=== PATIENT | female | born 1960 | race Hispanic/Latino ===

== ENCOUNTER 2018-10-01 11:42 | Inpatient (IN) | payer MEDICARE ==
[2018-10-01] MEDS ORDERED: NACL 0.9% 1000 ML 1,000 ML ONE (12:16)
[2018-10-01] MEDS ORDERED: DUONEB *Not for PRN Use IH ONE ×2 (12:18→12:32)
--- NOTE | 2018-10-01 12:23 | Emergency Department Report ---
ED Syncope HPI - General Stated Complaint: SYNCOPE/FAAL RT ARM PAIN Time Seen by Provider: 10/01/18 12:01 Source: patient, EMS Exam Limitations: no limitations - History of Present Illness Initial Comments: Patient is a 58-year-old female that presents emergency room with complaints of syncopal episode times one. Patient states she hit her arm. Patient states she was walking and just became dizzy and patient sat down and passed out. Patient denies hitting head. Patient denies prolonged loss of consciousness. Patient states that she was out for seconds. Patient states she was just [facility] after a weeklong stay in this hospital. Patient states she left a rehabilitation center AGAINST MEDICAL ADVICE discharge like they weren't doing anything for her. Patient denies chest pain shortness of breath. Patient denies headache. Patient denies any symptoms at this time. However patient had dizziness and lightheaded prior to passing out. Timing/Prior Episodes: no prior history, single episode today Precipitating Factors: Positive: lightheadedness Context: standing Loss of Consciousness: brief (seconds) Current Symptoms: back to normal - Related Data Allergies/Adverse Reactions: Allergies Sulfa (Sulfonamide Antibiotics) Allergy (Verified 09/12/18 22:00) Unknown Home Medications: Ambulatory Orders Duloxetine HCl [DULoxetine] 1 tab PO BID 09/13/18 Quetiapine Fumarate [QUEtiapine Fumarate] 1 tab PO HS 09/13/18 Tiotropium [Spiriva] 18 mcg IH QDAY 09/13/18 clonazePAM [Clonazepam] 1.5 tab PO HS 09/13/18 predniSONE [Prednisone] 2 puff PO DAILY 09/13/18 Acetaminophen [Acetaminophen TAB] 650 mg PO Q4H PRN tablet 09/19/18 Arformoterol Nebu [Brovana Nebu] 15 mcg IH Q12HRT ml 09/19/18 Budesonide [Pulmicort Respules] 0.5 mg IH Q12HRT nebu 09/19/18 Enoxaparin [Lovenox] 40 mg SUB-Q QDAY@1000 syringe 09/19/18 Ipratropium/Albuterol Sulfate [DUONEB *Not for PRN Use*] 1 ampul IH Q6HRT ampul.neb 09/19/18 methylPREDNISolone Sod Suc [Solu-MEDROL] 20 mg IV Q8HR vial 09/19/18 ED Review of Systems ROS: Stated complaint: SYNCOPE/FAAL RT ARM PAIN Other details as noted in HPI Constitutional: denies: chills, fever Eyes: denies: eye pain, eye discharge, vision change ENT: denies: ear pain, throat pain Respiratory: denies: cough, shortness of breath, wheezing Cardiovascular: denies: chest pain, palpitations Endocrine: no symptoms reported Gastrointestinal: denies: abdominal pain, nausea, diarrhea Genitourinary: denies: urgency, dysuria, discharge Musculoskeletal: denies: back pain, joint swelling, arthralgia Skin: denies: rash, lesions Neurological: denies: headache, weakness, paresthesias Psychiatric: denies: anxiety, depression Hematological/Lymphatic: denies: easy bleeding, easy bruising ED Past Medical Hx - Past Medical History Previous Medical History?: Yes Hx Congestive Heart Failure: No Hx Diabetes: No Hx Psychiatric Treatment: Yes Hx COPD: Yes - Surgical History Past Surgical History?: No - Family History Family history: no significant - Social History Smoking Status: Former Smoker Substance Use Type: None - Medications Home Medications: Home Medications Medication Instructions Recorded Confirmed Last Taken Type Duloxetine HCl [DULoxetine] 1 tab PO BID 09/13/18 09/13/18 Unknown History Quetiapine Fumarate [QUEtiapine 1 tab PO HS 09/13/18 09/13/18 Unknown History Fumarate] Tiotropium [Spiriva] 18 mcg IH QDAY 09/13/18 09/13/18 Unknown History clonazePAM [Clonazepam] 1.5 tab PO HS 09/13/18 09/13/18 Unknown History predniSONE [Prednisone] 2 puff PO DAILY 09/13/18 09/13/18 Unknown History Acetaminophen [Acetaminophen TAB] 650 mg PO Q4H PRN tablet 09/19/18 Unknown Rx Arformoterol Nebu [Brovana Nebu] 15 mcg IH Q12HRT ml 09/19/18 Unknown Rx Budesonide [Pulmicort Respules] 0.5 mg IH Q12HRT nebu 09/19/18 Unknown Rx Enoxaparin [Lovenox] 40 mg SUB-Q QDAY@1000 syringe 09/19/18 Unknown Rx Ipratropium/Albuterol Sulfate 1 ampul IH Q6HRT ampul.neb 09/19/18 Unknown Rx [DUONEB *Not for PRN Use*] methylPREDNISolone Sod Suc 20 mg IV Q8HR vial 09/19/18 Unknown Rx [Solu-MEDROL] ED Physical Exam - General Limitations: No Limitations General appearance: alert, in no apparent distress - Head Head exam: Present: atraumatic, normocephalic - Eye Eye exam: Present: normal appearance, PERRL Pupils: Present: normal accommodation - ENT ENT exam: Present: mucous membranes moist - Neck Neck exam: Present: normal inspection - Respiratory Respiratory exam: Present: normal lung sounds bilaterally. Absent: respiratory distress - Cardiovascular Cardiovascular Exam: Present: regular rate, normal rhythm. Absent: systolic murmur, diastolic murmur, rubs, gallop - GI/Abdominal GI/Abdominal exam: Present: soft, normal bowel sounds - Extremities Exam Extremities exam: Present: normal inspection - Back Exam Back exam: Present: normal inspection - Neurological Exam Neurological exam: Present: alert, oriented X3 - Psychiatric Psychiatric exam: Present: normal affect, normal mood - Skin Skin exam: Present: warm, dry, intact, normal color. Absent: rash ED Course Vital Signs 10/01/18 10/01/18 10/01/18 12:12 12:37 12:42 Temperature 98.4 F Pulse Rate 103 H 106 H Pulse Rate [ 106 H Bilateral] Respiratory 12 20 Rate Respiratory 24 Rate [Bilateral ] Blood Pressure 150/126 Blood Pressure [Left] O2 Sat by Pulse 80 L 95 Oximetry 10/01/18 10/01/18 10/01/18 14:00 14:45 15:45 Temperature Pulse Rate 102 H 103 H 105 H Pulse Rate [ Bilateral] Respiratory 14 15 18 Rate Respiratory Rate [Bilateral ] Blood Pressure Blood Pressure 86/49 100/54 120/63 [Left] O2 Sat by Pulse 96 95 99 Oximetry 10/01/18 16:00 Temperature Pulse Rate 106 H Pulse Rate [ Bilateral] Respiratory 14 Rate Respiratory Rate [Bilateral ] Blood Pressure Blood Pressure 95/55 [Left] O2 Sat by Pulse 99 Oximetry - Reevaluation(s) Reevaluation #1: Initial Evaluation done. Patient brought in by EMS. Patient states she had a syncopal episode. Patient found to be hypoxic. BiPAP has been ordered. Patient placed on BiPAP given a DuoNeb. She denies chest pain or shortness of breath. She denies history of CHF. Patient states she has COPD and is on 2.5 L of home O2. He found to be hypotensive, fluids will be started. 10/01/18 12:01 Patient blood pressure has improved. Patient's oxygenation has improved. 10/01/18 12:30 Her blood pressure is 103/60. Patient's oxygenation is 95%. Patient is doing well on BiPAP. 10/01/18 13:[address] Patient's blood pressure 120/60. Patient's oxygenation better and patient is currently on a Ventimask. 10/01/18 16:12 Discussed plan of care and results with patient. Patient voiced understanding of results. Patient agrees to plan of care and admission. 10/01/18 16:20 - Consultations Consultation #1: Hospital was consulted for admission. Hospitalist to admit patient. Hospitalist to assume care. 10/01/18 16:19 ED Medical Decision Making - Lab Data Result diagrams: 10/01/18 12:28 10/01/18 12:28 - EKG Data -: EKG Interpreted by Oh EKG shows normal: sinus rhythm, axis, intervals, QRS complexes, ST-T waves Rate: normal - Radiology Data Radiology results: report reviewed AP CHEST: HISTORY: Syncope, pain after fall Mild volume overload has resolved since 09/19/18. The lungs are hyperinflated consistent with underlying emphysema. Discoid atelectasis or scarring is noted at the left lung base. Otherwise, the lungs are adequately aerated. No pleural effusion or pneumothorax is identified. Heart size is within normal limits. The bony structures are demineralized. A mildly displaced left lateral rib fracture is identified at the seventh level. There is also suggestion of a right lateral eighth rib fracture. IMPRESSION: Emphysema. Discoid atelectasis or scarring at the left lung base. Bilateral rib fractures as described. FINAL REPORT EXAM: CT HEAD/BRAIN WO CON HISTORY: Syncope TECHNIQUE: CT examination of the head without IV contrast PRIORS: None. FINDINGS: No acute air-fluid level visualized in the included air-filled sinuses. Bone windows demonstrate no acute fracture. There is ventricular and sulcal prominence compatible with global cerebrocortical atrophy. The brain contains no mass, mass effect, hemorrhage, or acute infarct. There is no extra-axial intracranial bleed, brain bleed, or midline shift. IMPRESSION: No acute CVA, intracranial bleed, or brain mass - Medical Decision Making pt is a 58-year-old female that presented to the emergency room with complaints of syncope. Patient also found to have acute respiratory hypoxia as well as hypotension. Patient was admitted to the hospitalist service for further evaluation and treatment. Patient had a CTA done for elevated d-dimer and hypoxia. Patient's blood pressure responded well to fluids. She was initially placed on BiPAP for hypoxia patient has improved after respiratory treatments and is now on a Ventimask. Critical Care Time: Yes Critical care attestation.: If time is entered above; I have spent that time in minutes in the direct care of this critically ill patient, excluding procedure time. Critical Care Time: 55 minutes ED Disposition Clinical Impression: Hypoxia, COPD exacerbation Respiratory failure Qualifiers: Chronicity: acute Respiratory failure complication: hypoxia Qualified Code(s): J96.01 - Acute respiratory failure with hypoxia Hypotension Qualifiers: Hypotension type: unspecified hypotension type Qualified Code(s): I95.9 - Hypotension, unspecified Syncope Qualifiers: Syncope type: unspecified Qualified Code(s): R55 - Syncope and collapse Disposition: -09 OP ADMIT IP TO THIS HOSP Is pt being admited?: Yes Does the pt Need Aspirin: No Condition: Critical Time of Disposition: 16:08
[2018-10-01] MEDS ORDERED: MAXIPIME/NS 2 GM/100 ML 2 GM/100 ML BAG IV ONE (12:39)
[2018-10-01] MEDS ORDERED: NACL 0.9% 1000 ML 1,000 ML IV ONE ×2 (12:39)
[2018-10-01 12:58] LABS: Hematocrit 36.4 % (30.3-42.9); Hemoglobin 11.8 gm/dl (10.1-14.3); Mean Corpuscular HGB Conc 32 % (30-34); Mean Corpuscular Volume 92 fl (79-97); Red Blood Count 3.97 M/mm3 (3.65-5.03); Red Cell Distribution Width 24.5 % (13.2-15.2)
[2018-10-01 13:10] LABS: Creatine Kinase MB 4.1 ng/mL (0.0-4.0)
[2018-10-01 13:11] LABS: Alanine Aminotransferase 37 units/L (7-56); Albumin 3.5 g/dL (3.9-5); BUN/Creatinine Ratio 29; Blood Urea Nitrogen 20 mg/dL (7-17); Calcium 8.6 mg/dL (8.4-10.2); Hemolysis Index 16
--- NOTE | 2018-10-01 13:35 | XRay Report ---
AP CHEST: HISTORY: Syncope, pain after fall Mild volume overload has resolved since 09/19/18. The lungs are hyperinflated consistent with underlying emphysema. Discoid atelectasis or scarring is noted at the left lung base. Otherwise, the lungs are adequately aerated. No pleural effusion or pneumothorax is identified. Heart size is within normal limits. The bony structures are demineralized. A mildly displaced left lateral rib fracture is identified at the seventh level. There is also suggestion of a right lateral eighth rib fracture. IMPRESSION: Emphysema. Discoid atelectasis or scarring at the left lung base. Bilateral rib fractures as described.
[2018-10-01 14:14] LABS: Myelocytes # (Manual) 0.2 K/mm3; Total Cells Counted 100
[2018-10-01 14:15] LABS: Anisocytosis 2+; Macrocytosis 2+
[2018-10-01 14:16] LABS: Ovalocytes 1+; Platelet Estimate Consistent w Auto; Poikilocytosis 1+
[2018-10-01 14:17] LABS: Platelet Count 98 K/mm3 (140-440)
--- NOTE | 2018-10-01 15:57 | Cat Scan Report ---
FINAL REPORT EXAM: CT HEAD/BRAIN WO CON HISTORY: Syncope TECHNIQUE: CT examination of the head without IV contrast PRIORS: None. FINDINGS: No acute air-fluid level visualized in the included air-filled sinuses. Bone windows demonstrate no acute fracture. There is ventricular and sulcal prominence compatible with global cerebrocortical atrophy. The brain contains no mass, mass effect, hemorrhage, or acute infarct. There is no extra-axial intracranial bleed, brain bleed, or midline shift. IMPRESSION: No acute CVA, intracranial bleed, or brain mass
[2018-10-01] MEDS ORDERED: SOLU-Medrol IV ONE (16:19)
--- NOTE | 2018-10-01 16:39 | Cat Scan Report ---
FINAL REPORT EXAM: CT ANGIO CHEST HISTORY: hypoxia. el d-dimer TECHNIQUE: CT examination of the chest with IV contrast CT angiographic 2D and thick slab 3D image post-processing PRIORS: 09/13/2018 FINDINGS: Normal cardiac size without pericardial effusion. Patient arm in the diagnostic [id number] s image quality and limits the examination. Intact normal caliber thoracic aorta. Nonspecific mural thickening in the mid and distal esophagus. No hilar mass or mediastinal adenopathy. The visualized pulmonary arteries are diffusely patent bilat erally. There is no filling defect to suggest PE. Prominent stool and caliber in visible portion of colon may reflect constipation Multifocal pulmonary emphysema with scattered reticular scarring. Slight consolidation in the posterior lung base bilaterally may reflect atelectasis, left more than r ight. Differential includes small foci of pneumonia, left more than right. Degenerative change in the regional skeleton. Healed right rib fractures. Posterior fractures of the left 8th, 9th, 10th, and 11th ribs appear acute to subacute with adjacent slight callus formation. These are slightly to moderately displaced. Underlying pulmonary parenchyma l density may reflect pulmonary contusion. IMPRESSION: Eighth, 9th, 10th, and 11th posterior rib fractures appear acute to subacute, some with slight adjace nt callus formation. Subjacent pulmonary parenchymal density may reflect pulmonary contusion in the l eft lower lobe Slight consolidation of the posterior lung base bilaterally may reflect atelectasis and/or pneumonia, more on the left Nonspecific mural thickening in the mid and distal esophagus may be from reflux disease. Differential includes edema, inflammation, esophagitis, or neoplastic infiltration Prominent stool and caliber in the visible portion of colon may reflect constipation Pulmonary emphysema with scattered multifocal reticular scar No CT evidence of large vessel or central pulmonary emboli.
[2018-10-01] MEDS: NACL 0.9% 1000 ML 1,000 ML IV SCH (16:44)
[2018-10-01] MEDS ORDERED: TYLENOL PO PRN (22:34)
[2018-10-02] MEDS: DUONEB *Not for PRN Use IH SCH ×6 (01:45→21:06)
--- NOTE | 2018-10-02 07:01 | Event Note ---
Date: 10/01/18 See H/p in reports Syncope r/o GA
[2018-10-02] MEDS: NACL 0.9% 1000 ML 1,000 ML IV SCH ×2 (07:19→23:54)
--- NOTE | 2018-10-02 07:50 | History and Physical Report ---
CHIEF COMPLAINT: Apparently passed out x 1. HISTORY OF PRESENT ILLNESS: A 58-year-old female with past medical history of COPD and bipolar disorder, recently admitted to rehabilitation facility from this hospital, was discharged. The patient apparently passed out while going home. The patient was in the rehab center for about 10 days. No chest pain, no shortness of breath. Passed out for a few seconds. No diaphoresis. No precipitating factors. PAST MEDICAL HISTORY: Significant for COPD and bipolar disorder. PAST SURGICAL HISTORY: None. FAMILY HISTORY: Hypertension. SOCIAL HISTORY: Former smoker. REVIEW OF SYSTEMS: Significant for syncope. Otherwise, review of systems negative. Also, right arm pain. PHYSICAL EXAMINATION: GENERAL: Middle-aged female, cooperative during examination. VITAL SIGNS: Blood pressure is 113/69, temperature is 98, pulse is 105, respirations are 18. HEENT: Unremarkable. Pupils are equal and reactive. NECK: Supple, no lymphadenopathy, no thyromegaly. LUNGS: Clear to auscultation and percussion. Good air entry. CARDIOVASCULAR: S1, S2 heard. No gallop, no murmur, no rub. Apical impulse in left fifth intercostal space and midclavicular line. ABDOMEN: Soft and benign. No hepatosplenomegaly. No guarding, no rigidity. Hernial orifices are normal. EXTREMITIES: Good pedal pulses. No pedal edema. LABORATORY DATA: Significant for white count of 17,000, H and H of 11.8 and 36.4, platelet count of 98,000. Sodium is 133, slightly low, BUN and creatinine 20 and 0.7. CK is 44, CK-MB is 4.1, total protein is 6.1, albumin is 3.5. Chest CTA shows 8th, 9th, 10th, and 11th posterior rib fracture, appear acute or subacute with slight pulmonary parenchymal density may reflect pulmonary contusion in the left lower lobe. Slight consolidation of posterior lung base bilaterally may reflect atelectasis and pneumonia, more on the left. Nonspecific mural thickening in the mid and distal esophagus. No CT evidence of central pulmonary emboli. Head CT was negative. Chest x-ray shows emphysema, bilateral rib fractures, discoid atelectasis or scarring of the left lung base. ASSESSMENT AND PLAN: 1. Syncope. Syncope workup. 2. Pneumonia, left lower lobe pneumonia. IV antibiotics for now. Doubt left lower lobe pneumonia. High white count. We will treat as pneumonia for now, may deescalate the antibiotics depending on the patient's clinical response. The patient was treated in a rehab and in the [facility] for the last few weeks. 3. Rib fractures, conservative treatment. They are healing. 4. Chronic obstructive pulmonary disease exacerbation. Continue bronchodilators. 5.Acute resp failure--IV abx Neb tx and solumedrol 6. Deep venous thrombosis prophylaxis, Lovenox 40 mg subcutaneous daily. JOB# [id number] [facility]
[2018-10-02] MEDS ORDERED: PROVENTIL IH PRN (08:07)
[2018-10-02] MEDS: PULMICORT IH SCH ×2 (09:20→21:06)
[2018-10-02] MEDS: BROVANA NEBU IH SCH ×2 (09:20→21:05)
[2018-10-02] MEDS ORDERED: DULOXETINE HCL PO SCH (10:00)
[2018-10-02] MEDS ORDERED: SPIRIVA IH SCH (10:00)
--- NOTE | 2018-10-02 11:14 | Progress Note ---
Assessment and Plan Assessment and plan: Sepsis. The patient meets criteria given the tachycardia, leukocytosis and diagnosis of pneumonia. Continue IV antibiotics, follow-up blood cultures and monitor closely. Left lower lobe pneumonia. Continue IV antibiotics. Rib fractures, conservative treatment. Pain control. COPD exacerbation. Continue IV steroids, breathing treatments and antibiotics. Acute hypoxemic respiratory failure. Continue O2 for supportive care. DVT prophylaxis. Continue Lovenox daily. History Interval history: No new issues overnight. Hospitalist Physical - Constitutional Vitals: Temp Pulse Resp BP Pulse Ox 98.2 F 94 H 18 135/75 94 10/02/18 07:57 10/02/18 09:23 10/02/18 09:23 10/02/18 07:58 10/02/18 09:25 General appearance: Present: no acute distress, well-nourished - EENT Eyes: Present: PERRL, EOM intact ENT: hearing intact, clear oral mucosa, dentition normal - Neck Neck: Present: supple, normal ROM - Respiratory Respiratory effort: normal Respiratory: bilateral: CTA - Cardiovascular Rhythm: regular Heart Sounds: Present: S1 & S2. Absent: gallop, rub - Extremities Extremities: no ischemia, No edema, Full ROM - Abdominal General gastrointestinal: soft, non-tender, non-distended, normal bowel sounds - Integumentary Integumentary: Present: clear, warm, dry - Neurologic Neurologic: CNII-XII intact, moves all extremities Results - Labs CBC & Chem 7: 10/01/18 12:28 10/01/18 12:28 Labs: Laboratory Last Values WBC 17.0 K/mm3 (4.5-11.0) H 10/01/18 12:28 RBC 3.97 M/mm3 (3.65-5.03) 10/01/18 12:28 Hgb 11.8 gm/dl (10.1-14.3) 10/01/18 12:28 Hct 36.4 % (30.3-42.9) 10/01/18 12:28 MCV 92 fl (79-97) 10/01/18 12:28 MCH 30 pg (28-32) 10/01/18 12:28 MCHC 32 % (30-34) 10/01/18 12:28 RDW 24.5 % (13.2-15.2) H 10/01/18 12:28 Plt Count 98 K/mm3 (140-440) L 10/01/18 12:28 [place] % (Auto) [employer] 10/01/18 12:28 Eos % (Auto) [employer] 10/01/18 12:28 [place] # [employer] 10/01/18 12:28 Eos # [employer] 10/01/18 12:28 Baso # [employer] 10/01/18 12:28 Add Manual Diff Complete 10/01/18 12:28 Total Counted 100 10/01/18 12:28 Seg Neutrophils % [employer] 10/01/18 12:28 Seg Neuts % (Manual) 88.0 % (40.0-70.0) H 10/01/18 12:28 Band Neutrophils % 0 % 10/01/18 12:28 Lymphocytes % (Manual) 8.0 % (13.4-35.0) L 10/01/18 12:28 Reactive Lymphs % (Man) 0 % 10/01/18 12:28 Monocytes % (Manual) 1.0 % (0.0-7.3) 10/01/18 12:28 Eosinophils % (Manual) 1.0 % (0.0-4.3) 10/01/18 12:28 Basophils % (Manual) 1.0 % (0.0-1.8) 10/01/18 12:28 Metamyelocytes % 0 % 10/01/18 12:28 Myelocytes % 1.0 % 10/01/18 12:28 Promyelocytes % 0 % 10/01/18 12:28 Blast Cells % 0 % 10/01/18 12:28 Nucleated RBC % Not Reportable 10/01/18 12:28 Seg Neutrophils # [employer] 10/01/18 12:28 Seg Neutrophils # Man 15.0 K/mm3 (1.8-7.7) H 10/01/18 12:28 Band Neutrophils # 0.0 K/mm3 10/01/18 12:28 Lymphocytes # (Manual) 1.4 K/mm3 (1.2-5.4) 10/01/18 12:28 Abs React Lymphs (Man) 0.0 K/mm3 10/01/18 12:28 Monocytes # (Manual) 0.2 K/mm3 (0.0-0.8) 10/01/18 12:28 Eosinophils # (Manual) 0.2 K/mm3 (0.0-0.4) 10/01/18 12:28 Basophils # (Manual) 0.2 K/mm3 (0.0-0.1) H 10/01/18 12:28 Metamyelocytes # 0.0 K/mm3 10/01/18 12:28 Myelocytes # 0.2 K/mm3 10/01/18 12:28 Promyelocytes # 0.0 K/mm3 10/01/18 12:28 Blast Cells # 0.0 K/mm3 10/01/18 12:28 WBC Morphology Not Reportable 10/01/18 12:28 Hypersegmented Neuts Not Reportable 10/01/18 12:28 Hyposegmented Neuts Not Reportable 10/01/18 12:28 Hypogranular Neuts Not Reportable 10/01/18 12:28 Smudge Cells Not Reportable 10/01/18 12:28 Toxic Granulation Not Reportable 10/01/18 12:28 Toxic Vacuolation Not Reportable 10/01/18 12:28 Dohle Bodies Not Reportable 10/01/18 12:28 Pelger-Huet Anomaly Not Reportable 10/01/18 12:28 Raphael Rods Not Reportable 10/01/18 12:28 Platelet Estimate Consistent w auto 10/01/18 12:28 Clumped Platelets Not Reportable 10/01/18 12:28 Plt Clumps, EDTA Not Reportable 10/01/18 12:28 Large Platelets Not Reportable 10/01/18 12:28 Giant Platelets Not Reportable 10/01/18 12:28 Platelet Satelliting Not Reportable 10/01/18 12:28 Plt Morphology Comment Not Reportable 10/01/18 12:28 RBC Morphology Not Reportable 10/01/18 12:28 Dimorphic RBCs Not Reportable 10/01/18 12:28 Polychromasia Not Reportable 10/01/18 12:28 Hypochromasia Not Reportable 10/01/18 12:28 Poikilocytosis 1+ 10/01/18 12:28 Anisocytosis 2+ 10/01/18 12:28 Microcytosis Not Reportable 10/01/18 12:28 Macrocytosis 2+ 10/01/18 12:28 Spherocytes Not Reportable 10/01/18 12:28 Pappenheimer Bodies Not Reportable 10/01/18 12:28 Sickle Cells Not Reportable 10/01/18 12:28 Target Cells Not Reportable 10/01/18 12:28 Tear Drop Cells Not Reportable 10/01/18 12:28 Ovalocytes 1+ 10/01/18 12:28 Helmet Cells Not Reportable 10/01/18 12:28 [place] Bodies Not Reportable 10/01/18 12:28 [place] Rings Not Reportable 10/01/18 12:28 [place] Cells Not Reportable 10/01/18 12:28 Bite Cells Not Reportable 10/01/18 12:28 Crenated Cell Not Reportable 10/01/18 12:28 Elliptocytes Not Reportable 10/01/18 12:28 Acanthocytes (Spur) Not Reportable 10/01/18 12:28 Rouleaux Not Reportable 10/01/18 12:28 Hemoglobin C Crystals Not Reportable 10/01/18 12:28 Schistocytes Not Reportable 10/01/18 12:28 Malaria parasites Not Reportable 10/01/18 12:28 Frederic Bodies Not Reportable 10/01/18 12:28 Hem Pathologist Commnt No 10/01/18 12:28 D-Dimer 1530.46 ng/mlDDU (0-234) H 10/01/18 12:28 POC ABG pH 7.388 (7.35-7.45) 10/01/18 12:54 POC ABG pCO2 46.6 (35-45) H 10/01/18 12:54 POC ABG pO2 101 (80-105) 10/01/18 12:54 POC ABG HCO3 28.1 10/01/18 12:54 POC ABG Total CO2 29 10/01/18 12:54 POC ABG O2 Sat 98 10/01/18 12:54 POC ABG Base Excess 3 10/01/18 12:54 FiO2 45 % 10/01/18 12:54 Sodium 133 mmol/L (137-145) L 10/01/18 12:28 Potassium 3.7 mmol/L (3.6-5.0) 10/01/18 12:28 Chloride 92.3 mmol/L (98-107) L 10/01/18 12:28 Carbon Dioxide 25 mmol/L (22-30) 10/01/18 12:28 Anion Gap 19 mmol/L 10/01/18 12:28 BUN 20 mg/dL (7-17) H 10/01/18 12:28 Creatinine 0.7 mg/dL (0.7-1.2) 10/01/18 12:28 Estimated GFR > 60 ml/min 10/01/18 12:28 BUN/Creatinine Ratio 29 % 10/01/18 12:28 Glucose 106 mg/dL (65-100) H 10/01/18 12:28 Lactic Acid 1.00 mmol/L (0.7-2.0) 10/01/18 13:43 Calcium 8.6 mg/dL (8.4-10.2) 10/01/18 12:28 Total Bilirubin 1.20 mg/dL (0.1-1.2) 10/01/18 12:28 AST 16 units/L (5-40) 10/01/18 12:28 ALT 37 units/L (7-56) 10/01/18 12:28 Alkaline Phosphatase 223 units/L (35-129) H 10/01/18 12:28 Total Creatine Kinase 44 units/L (30-135) 10/01/18 12:28 CK-MB (CK-2) 4.1 ng/mL (0.0-4.0) H 10/01/18 12:28 CK-MB (CK-2) Rel Index 9.3 (0-4) H 10/01/18 12:28 Troponin T < 0.010 ng/mL (0.00-0.029) 10/01/18 12:28 Total Protein 6.1 g/dL (6.3-8.2) L 10/01/18 12:28 Albumin 3.5 g/dL (3.9-5) L 10/01/18 12:28 Albumin/Globulin Ratio 1.3 % 10/01/18 12:28
[2018-10-02 11:44] LABS: Creatine Kinase MB 3.8 ng/mL (0.0-4.0)
[2018-10-02] MEDS ORDERED: LEXISCAN IV ONE (12:12)
[2018-10-02] MEDS: CYMBALTA PO SCH ×2 (15:35→21:00)
[2018-10-02] MEDS: SOLU-Medrol IV SCH ×2 (15:35→21:00)
[2018-10-02] MEDS: LEVAQUIN 750MG/150ML 750 MG/150 ML BAG IV SCH (15:35)
--- NOTE | 2018-10-02 17:19 | Vascular Lab Report ---
FINAL REPORT PROCEDURE: Bilateral duplex carotid artery ultrasound. TECHNIQUE: Duplex Doppler ultrasound of the common, internal and external carotid arteries and the v ertebral arteries was performed bilaterally. Pineda scale imaging, velocity spectral waveform analysis, and color flow Doppler were employed. CPT 71364 HISTORY: Syncope. COMPARISON: No prior studies are available for comparison. FINDINGS: Note: Measurement of carotid stenosis is based on flow velocity values that correlate with the [place] Symptomatic Carotid Endarterectomy Trial (NASCET) based stenosis criteria using the internal carotid artery diameter as the denominator for stenosis calculation. CPT 3100F Right side: The right common carotid artery appears widely patent. There is no visible narrowing. The re is some atherosclerotic plaque at the origin of the right internal carotid artery. The peak systol ic velocity measurements are as follows: Proximal right internal carotid artery 134.7 centimeters/sec ond, proximal common carotid artery 102.5 centimeters/second. Right internal carotid/common carotid v elocity ratio 1.31. The ratio is within normal limits. The velocity measurement in the internal carot id artery is mildly elevated. This indicates narrowing of the internal carotid artery estimated at 50 -79 percent. Antegrade flow is confirmed in the right vertebral artery. Left-side: The left common carotid artery appears widely patent. There is some atherosclerotic plaque at the left carotid bifurcation. The peak systolic velocity measurements are as follows: Proximal le ft internal carotid artery 117.9 centimeters/second, proximal common carotid artery 114.2 centimeters /second, left internal carotid/common carotid velocity ratio 1.03. These values are all within normal limits and indicate a less than 50 percent stenosis of the internal carotid artery. Antegrade flow i s confirmed in the left vertebral artery. IMPRESSION: 50-79 percent stenosis of the right internal carotid artery. Less than 50 percent stenosis of the lef t internal carotid artery.
[2018-10-02] MEDS ORDERED: CLONAZEPAM PO SCH (22:00)
[2018-10-02] MEDS ORDERED: QUETIAPINE FUMARATE PO SCH (22:00)
--- NOTE | 2018-10-02 22:35 | Treadmill Report ---
SINGLE ISOTOPE DUAL STUDY MYOCARDIAL PERFUSION SCAN REFERRING PHYSICIAN: Tevin Eric MD Seen and dictated by Anupam Yeung MD DESCRIPTION OF PROCEDURE: The patient received 10 mCi of technetium 99m Myoview intravenously under resting conditions. Resting myocardial perfusion scan was done. Subsequently, the patient underwent Lexiscan stress test as per the protocol. During Lexiscan stress, the patient received 28 mCi of technetium 99m Myoview intravenously. After 30-60 minutes, post stress images were done. Computerized reconstruction imaging was performed for analysis. The post-stress images did not reveal any perfusion abnormality. Gated study did not reveal any wall motion abnormality. Left ventricular ejection fraction was normal and was calculated to be 72%. The resting images were also normal. CONCLUSION: 1. Normal resting and stress myocardial perfusion scan images after the patient underwent Lexiscan stress test. 2. No wall motion abnormality. 3. Normal left ventricular ejection fraction of 72%. JOB# [id number] [facility]
[2018-10-03] MEDS: SOLU-Medrol IV SCH ×3 (05:23→22:32)
[2018-10-03] MEDS: PULMICORT IH SCH ×2 (08:16→20:14)
[2018-10-03] MEDS: BROVANA NEBU IH SCH ×2 (08:16→20:14)
[2018-10-03] MEDS: NACL 0.9% 1000 ML 1,000 ML IV SCH (09:39)
[2018-10-03] MEDS: CYMBALTA PO SCH ×2 (09:52→22:33)
[2018-10-03] MEDS: LEVAQUIN 750MG/150ML 750 MG/150 ML BAG IV SCH (09:52)
--- NOTE | 2018-10-03 10:50 | Progress Note ---
Assessment and Plan Assessment and plan: Sepsis. The patient meets criteria given the tachycardia, leukocytosis and diagnosis of pneumonia. Continue IV antibiotics, follow-up blood cultures and monitor closely. Left lower lobe pneumonia. Continue IV antibiotics. Rib fractures, conservative treatment. Pain control. COPD exacerbation. Continue IV steroids, breathing treatments and antibiotics. Acute hypoxemic respiratory failure. Continue O2 for supportive care. DVT prophylaxis. Continue Lovenox daily. History Interval history: No new issues overnight. Hospitalist Physical - Constitutional Vitals: Temp Pulse Resp BP Pulse Ox 98.7 F 107 H 20 150/85 95 10/03/18 08:27 10/03/18 10:00 10/03/18 10:00 10/03/18 08:27 10/03/18 10:00 General appearance: Present: no acute distress, well-nourished - EENT Eyes: Present: PERRL, EOM intact ENT: hearing intact, clear oral mucosa, dentition normal - Neck Neck: Present: supple, normal ROM - Respiratory Respiratory effort: normal Respiratory: bilateral: CTA - Cardiovascular Rhythm: regular Heart Sounds: Present: S1 & S2. Absent: gallop, rub - Extremities Extremities: no ischemia, No edema, Full ROM - Abdominal General gastrointestinal: soft, non-tender, non-distended, normal bowel sounds - Integumentary Integumentary: Present: clear, warm, dry - Neurologic Neurologic: CNII-XII intact, moves all extremities Results - Labs CBC & Chem 7: 10/01/18 12:28 10/01/18 12:28 Labs: Laboratory Last Values WBC 17.0 K/mm3 (4.5-11.0) H 10/01/18 12:28 RBC 3.97 M/mm3 (3.65-5.03) 10/01/18 12:28 Hgb 11.8 gm/dl (10.1-14.3) 10/01/18 12:28 Hct 36.4 % (30.3-42.9) 10/01/18 12:28 MCV 92 fl (79-97) 10/01/18 12:28 MCH 30 pg (28-32) 10/01/18 12:28 MCHC 32 % (30-34) 10/01/18 12:28 RDW 24.5 % (13.2-15.2) H 10/01/18 12:28 Plt Count 98 K/mm3 (140-440) L 10/01/18 12:28 [place] % (Auto) Keypuncher 10/01/18 12:28 Eos % (Auto) Keypuncher 10/01/18 12:28 [place] # Keypuncher 10/01/18 12:28 Eos # Keypuncher 10/01/18 12:28 Baso # Keypuncher 10/01/18 12:28 Add Manual Diff Complete 10/01/18 12:28 Total Counted 100 10/01/18 12:28 Seg Neutrophils % Keypuncher 10/01/18 12:28 Seg Neuts % (Manual) 88.0 % (40.0-70.0) H 10/01/18 12:28 Band Neutrophils % 0 % 10/01/18 12:28 Lymphocytes % (Manual) 8.0 % (13.4-35.0) L 10/01/18 12:28 Reactive Lymphs % (Man) 0 % 10/01/18 12:28 Monocytes % (Manual) 1.0 % (0.0-7.3) 10/01/18 12:28 Eosinophils % (Manual) 1.0 % (0.0-4.3) 10/01/18 12:28 Basophils % (Manual) 1.0 % (0.0-1.8) 10/01/18 12:28 Metamyelocytes % 0 % 10/01/18 12:28 Myelocytes % 1.0 % 10/01/18 12:28 Promyelocytes % 0 % 10/01/18 12:28 Blast Cells % 0 % 10/01/18 12:28 Nucleated RBC % Not Reportable 10/01/18 12:28 Seg Neutrophils # Keypuncher 10/01/18 12:28 Seg Neutrophils # Man 15.0 K/mm3 (1.8-7.7) H 10/01/18 12:28 Band Neutrophils # 0.0 K/mm3 10/01/18 12:28 Lymphocytes # (Manual) 1.4 K/mm3 (1.2-5.4) 10/01/18 12:28 Abs React Lymphs (Man) 0.0 K/mm3 10/01/18 12:28 Monocytes # (Manual) 0.2 K/mm3 (0.0-0.8) 10/01/18 12:28 Eosinophils # (Manual) 0.2 K/mm3 (0.0-0.4) 10/01/18 12:28 Basophils # (Manual) 0.2 K/mm3 (0.0-0.1) H 10/01/18 12:28 Metamyelocytes # 0.0 K/mm3 10/01/18 12:28 Myelocytes # 0.2 K/mm3 10/01/18 12:28 Promyelocytes # 0.0 K/mm3 10/01/18 12:28 Blast Cells # 0.0 K/mm3 10/01/18 12:28 WBC Morphology Not Reportable 10/01/18 12:28 Hypersegmented Neuts Not Reportable 10/01/18 12:28 Hyposegmented Neuts Not Reportable 10/01/18 12:28 Hypogranular Neuts Not Reportable 10/01/18 12:28 Smudge Cells Not Reportable 10/01/18 12:28 Toxic Granulation Not Reportable 10/01/18 12:28 Toxic Vacuolation Not Reportable 10/01/18 12:28 Dohle Bodies Not Reportable 10/01/18 12:28 Pelger-Huet Anomaly Not Reportable 10/01/18 12:28 Raphael Rods Not Reportable 10/01/18 12:28 Platelet Estimate Consistent w auto 10/01/18 12:28 Clumped Platelets Not Reportable 10/01/18 12:28 Plt Clumps, EDTA Not Reportable 10/01/18 12:28 Large Platelets Not Reportable 10/01/18 12:28 Giant Platelets Not Reportable 10/01/18 12:28 Platelet Satelliting Not Reportable 10/01/18 12:28 Plt Morphology Comment Not Reportable 10/01/18 12:28 RBC Morphology Not Reportable 10/01/18 12:28 Dimorphic RBCs Not Reportable 10/01/18 12:28 Polychromasia Not Reportable 10/01/18 12:28 Hypochromasia Not Reportable 10/01/18 12:28 Poikilocytosis 1+ 10/01/18 12:28 Anisocytosis 2+ 10/01/18 12:28 Microcytosis Not Reportable 10/01/18 12:28 Macrocytosis 2+ 10/01/18 12:28 Spherocytes Not Reportable 10/01/18 12:28 Pappenheimer Bodies Not Reportable 10/01/18 12:28 Sickle Cells Not Reportable 10/01/18 12:28 Target Cells Not Reportable 10/01/18 12:28 Tear Drop Cells Not Reportable 10/01/18 12:28 Ovalocytes 1+ 10/01/18 12:28 Helmet Cells Not Reportable 10/01/18 12:28 Sol-[place] Bodies Not Reportable 10/01/18 12:28 Cornelius Rings Not Reportable 10/01/18 12:28 Jayant Cells Not Reportable 10/01/18 12:28 Bite Cells Not Reportable 10/01/18 12:28 Crenated Cell Not Reportable 10/01/18 12:28 Elliptocytes Not Reportable 10/01/18 12:28 Acanthocytes (Spur) Not Reportable 10/01/18 12:28 Rouleaux Not Reportable 10/01/18 12:28 Hemoglobin C Crystals Not Reportable 10/01/18 12:28 Schistocytes Not Reportable 10/01/18 12:28 Malaria parasites Not Reportable 10/01/18 12:28 Frederic Bodies Not Reportable 10/01/18 12:28 Hem Pathologist Commnt No 10/01/18 12:28 D-Dimer 1530.46 ng/mlDDU (0-234) H 10/01/18 12:28 POC ABG pH 7.388 (7.35-7.45) 10/01/18 12:54 POC ABG pCO2 46.6 (35-45) H 10/01/18 12:54 POC ABG pO2 101 (80-105) 10/01/18 12:54 POC ABG HCO3 28.1 10/01/18 12:54 POC ABG Total CO2 29 10/01/18 12:54 POC ABG O2 Sat 98 10/01/18 12:54 POC ABG Base Excess 3 10/01/18 12:54 FiO2 45 % 10/01/18 12:54 Sodium 133 mmol/L (137-145) L 10/01/18 12:28 Potassium 3.7 mmol/L (3.6-5.0) 10/01/18 12:28 Chloride 92.3 mmol/L (98-107) L 10/01/18 12:28 Carbon Dioxide 25 mmol/L (22-30) 10/01/18 12:28 Anion Gap 19 mmol/L 10/01/18 12:28 BUN 20 mg/dL (7-17) H 10/01/18 12:28 Creatinine 0.7 mg/dL (0.7-1.2) 10/01/18 12:28 Estimated GFR > 60 ml/min 10/01/18 12:28 BUN/Creatinine Ratio 29 % 10/01/18 12:28 Glucose 106 mg/dL (65-100) H 10/01/18 12:28 POC Glucose 276 (70-105) H 10/03/18 10:09 Lactic Acid 1.00 mmol/L (0.7-2.0) 10/01/18 13:43 Calcium 8.6 mg/dL (8.4-10.2) 10/01/18 12:28 Total Bilirubin 1.20 mg/dL (0.1-1.2) 10/01/18 12:28 AST 16 units/L (5-40) 10/01/18 12:28 ALT 37 units/L (7-56) 10/01/18 12:28 Alkaline Phosphatase 223 units/L (35-129) H 10/01/18 12:28 Total Creatine Kinase 29 units/L (30-135) L 10/02/18 11:04 CK-MB (CK-2) 3.8 ng/mL (0.0-4.0) 10/02/18 11:04 CK-MB (CK-2) Rel Index 13.1 (0-4) H 10/02/18 11:04 Troponin T < 0.010 ng/mL (0.00-0.029) 10/02/18 11:04 Total Protein 6.1 g/dL (6.3-8.2) L 10/01/18 12:28 Albumin 3.5 g/dL (3.9-5) L 10/01/18 12:28 Albumin/Globulin Ratio 1.3 % 10/01/18 12:28
[2018-10-03] MEDS ORDERED: HumuLIN R SUB-Q SCH (11:30)
[2018-10-03] MEDS ORDERED: D50W (25GM) Syringe IV PRN (11:39)
[2018-10-03] MEDS: HumuLIN R SUB-Q SCH ×3 (12:24→22:36)
[2018-10-03] MEDS: DUONEB *Not for PRN Use IH SCH ×4 (12:59→21:00)
[2018-10-03] MEDS: NORMODYNE PO SCH (22:35)
[2018-10-04] MEDS: SOLU-Medrol IV SCH ×3 (05:54→22:04)
[2018-10-04 06:04] LABS: Hematocrit 28.3 % (30.3-42.9); Hemoglobin 9.5 gm/dl (10.1-14.3); Mean Corpuscular HGB Conc 34 % (30-34); Mean Corpuscular Volume 91 fl (79-97); Platelet Count 192 K/mm3 (140-440)
[2018-10-04 06:41] LABS: Alanine Aminotransferase 30 units/L (7-56); BUN/Creatinine Ratio 30; Band Neutrophils # (Manual) 0.2 K/mm3; Basophils % (Manual) 0 % (0.0-1.8); Blood Urea Nitrogen 15 mg/dL (7-17); Calcium 8.6 mg/dL (8.4-10.2); Eosinophils % (Manual) 0 % (0.0-4.3); Hemolysis Index 7; Total Cells Counted 100
[2018-10-04 06:42] LABS: Anisocytosis 2+; Dimorphic RBC Yes; Hypochromasia 1+; Ovalocytes 1+; Stomatocytes Few; Target Cells Rare
[2018-10-04] MEDS: HumuLIN R SUB-Q SCH ×4 (08:18→22:06)
[2018-10-04] MEDS: PULMICORT IH SCH ×2 (08:46→21:25)
[2018-10-04] MEDS: DUONEB *Not for PRN Use IH SCH ×4 (08:46→21:25)
[2018-10-04] MEDS: BROVANA NEBU IH SCH ×2 (08:46→21:25)
[2018-10-04] MEDS: LEVAQUIN 750MG/150ML 750 MG/150 ML BAG IV SCH (10:22)
[2018-10-04] MEDS: NORMODYNE PO SCH ×2 (10:23→22:02)
[2018-10-04] MEDS: CYMBALTA PO SCH ×2 (10:24→22:04)
--- NOTE | 2018-10-04 14:09 | Progress Note ---
Assessment and Plan Assessment and plan: Sepsis. Continue IV antibiotics, follow-up blood cultures and monitor closely. Left lower lobe pneumonia. Continue IV antibiotics. Rib fractures, conservative treatment. Pain control. COPD exacerbation. Continue IV steroids, breathing treatments and antibiotics. Acute hypoxemic respiratory failure. Continue O2 for supportive care. DVT prophylaxis. Continue Lovenox daily. History Interval history: No new issues overnight. Hospitalist Physical - Constitutional Vitals: Temp Pulse Resp BP Pulse Ox 98.3 F 68 20 124/61 94 10/04/18 11:54 10/04/18 11:55 10/04/18 11:55 10/04/18 11:55 10/04/18 11:55 General appearance: Present: no acute distress, well-nourished - EENT Eyes: Present: PERRL, EOM intact ENT: hearing intact, clear oral mucosa, dentition normal - Neck Neck: Present: supple, normal ROM - Respiratory Respiratory effort: normal Respiratory: bilateral: CTA - Cardiovascular Rhythm: regular Heart Sounds: Present: S1 & S2. Absent: gallop, rub - Extremities Extremities: no ischemia, No edema, Full ROM - Abdominal General gastrointestinal: soft, non-tender, non-distended, normal bowel sounds - Integumentary Integumentary: Present: clear, warm, dry - Neurologic Neurologic: CNII-XII intact, moves all extremities Results - Labs CBC & Chem 7: 10/04/18 05:42 10/04/18 05:42 Labs: Laboratory Last Values WBC 15.3 K/mm3 (4.5-11.0) H 10/04/18 05:42 RBC 3.10 M/mm3 (3.65-5.03) L 10/04/18 05:42 Hgb 9.5 gm/dl (10.1-14.3) L 10/04/18 05:42 Hct 28.3 % (30.3-42.9) L D 10/04/18 05:42 MCV 91 fl (79-97) 10/04/18 05:42 MCH 31 pg (28-32) 10/04/18 05:42 MCHC 34 % (30-34) 10/04/18 05:42 RDW 26.0 % (13.2-15.2) H 10/04/18 05:42 Plt Count 192 K/mm3 (140-440) 10/04/18 05:42 [place] % (Auto) Drycleaner 10/01/18 12:28 Eos % (Auto) Drycleaner 10/01/18 12:28 [place] # Drycleaner 10/01/18 12:28 Eos # Drycleaner 10/01/18 12:28 Baso # Drycleaner 10/01/18 12:28 Add Manual Diff Complete 10/04/18 05:42 Total Counted 100 10/04/18 05:42 Seg Neutrophils % Drycleaner 10/04/18 05:42 Seg Neuts % (Manual) 92.0 % (40.0-70.0) H 10/04/18 05:42 Band Neutrophils % 1.0 % 10/04/18 05:42 Lymphocytes % (Manual) 3.0 % (13.4-35.0) L 10/04/18 05:42 Reactive Lymphs % (Man) 0 % 10/04/18 05:42 Monocytes % (Manual) 4.0 % (0.0-7.3) 10/04/18 05:42 Eosinophils % (Manual) 0 % (0.0-4.3) 10/04/18 05:42 Basophils % (Manual) 0 % (0.0-1.8) 10/04/18 05:42 Metamyelocytes % 0 % 10/04/18 05:42 Myelocytes % 0 % 10/04/18 05:42 Promyelocytes % 0 % 10/04/18 05:42 Blast Cells % 0 % 10/04/18 05:42 Nucleated RBC % Not Reportable 10/04/18 05:42 Seg Neutrophils # Drycleaner 10/01/18 12:28 Seg Neutrophils # Man 14.1 K/mm3 (1.8-7.7) H 10/04/18 05:42 Band Neutrophils # 0.2 K/mm3 10/04/18 05:42 Lymphocytes # (Manual) 0.5 K/mm3 (1.2-5.4) L 10/04/18 05:42 Abs React Lymphs (Man) 0.0 K/mm3 10/04/18 05:42 Monocytes # (Manual) 0.6 K/mm3 (0.0-0.8) 10/04/18 05:42 Eosinophils # (Manual) 0.0 K/mm3 (0.0-0.4) 10/04/18 05:42 Basophils # (Manual) 0.0 K/mm3 (0.0-0.1) 10/04/18 05:42 Metamyelocytes # 0.0 K/mm3 10/04/18 05:42 Myelocytes # 0.0 K/mm3 10/04/18 05:42 Promyelocytes # 0.0 K/mm3 10/04/18 05:42 Blast Cells # 0.0 K/mm3 10/04/18 05:42 WBC Morphology Not Reportable 10/04/18 05:42 Hypersegmented Neuts Not Reportable 10/04/18 05:42 Hyposegmented Neuts Not Reportable 10/04/18 05:42 Hypogranular Neuts Not Reportable 10/04/18 05:42 Smudge Cells Not Reportable 10/04/18 05:42 Toxic Granulation Not Reportable 10/04/18 05:42 Toxic Vacuolation Not Reportable 10/04/18 05:42 Dohle Bodies Not Reportable 10/04/18 05:42 Pelger-Huet Anomaly Not Reportable 10/04/18 05:42 Raphael Rods Not Reportable 10/04/18 05:42 Platelet Estimate Appears normal 10/04/18 05:42 Clumped Platelets Not Reportable 10/04/18 05:42 Plt Clumps, EDTA Not Reportable 10/04/18 05:42 Large Platelets Not Reportable 10/04/18 05:42 Giant Platelets Not Reportable 10/04/18 05:42 Platelet Satelliting Not Reportable 10/04/18 05:42 Plt Morphology Comment Not Reportable 10/04/18 05:42 RBC Morphology Not Reportable 10/04/18 05:42 Dimorphic RBCs Yes 10/04/18 05:42 Polychromasia Rare 10/04/18 05:42 Hypochromasia 1+ 10/04/18 05:42 Poikilocytosis Not Reportable 10/04/18 05:42 Anisocytosis 2+ 10/04/18 05:42 Microcytosis Few 10/04/18 05:42 Macrocytosis Not Reportable 10/04/18 05:42 Spherocytes Not Reportable 10/04/18 05:42 Pappenheimer Bodies Not Reportable 10/04/18 05:42 Sickle Cells Not Reportable 10/04/18 05:42 Target Cells Rare 10/04/18 05:42 Tear Drop Cells Not Reportable 10/04/18 05:42 Ovalocytes 1+ 10/04/18 05:42 Stomatocytes Few 10/04/18 05:42 Helmet Cells Not Reportable 10/04/18 05:42 Sol-Boone Bodies Not Reportable 10/04/18 05:42 Vale Rings Not Reportable 10/04/18 05:42 Bayard Cells Not Reportable 10/04/18 05:42 Bite Cells Not Reportable 10/04/18 05:42 Crenated Cell Not Reportable 10/04/18 05:42 Elliptocytes Not Reportable 10/04/18 05:42 Acanthocytes (Spur) Not Reportable 10/04/18 05:42 Rouleaux Not Reportable 10/04/18 05:42 Hemoglobin C Crystals Not Reportable 10/04/18 05:42 Schistocytes Not Reportable 10/04/18 05:42 Malaria parasites Not Reportable 10/04/18 05:42 Frederic Bodies Not Reportable 10/04/18 05:42 Hem Pathologist Commnt No 10/04/18 05:42 D-Dimer 1530.46 ng/mlDDU (0-234) H 10/01/18 12:28 POC ABG pH 7.388 (7.35-7.45) 10/01/18 12:54 POC ABG pCO2 46.6 (35-45) H 10/01/18 12:54 POC ABG pO2 101 (80-105) 10/01/18 12:54 POC ABG HCO3 28.1 10/01/18 12:54 POC ABG Total CO2 29 10/01/18 12:54 POC ABG O2 Sat 98 10/01/18 12:54 POC ABG Base Excess 3 10/01/18 12:54 FiO2 45 % 10/01/18 12:54 Sodium 133 mmol/L (137-145) L 10/04/18 05:42 Potassium 4.0 mmol/L (3.6-5.0) 10/04/18 05:42 Chloride 95.1 mmol/L (98-107) L 10/04/18 05:42 Carbon Dioxide 31 mmol/L (22-30) H 10/04/18 05:42 Anion Gap 11 mmol/L 10/04/18 05:42 BUN 15 mg/dL (7-17) 10/04/18 05:42 Creatinine 0.5 mg/dL (0.7-1.2) L 10/04/18 05:42 Estimated GFR > 60 ml/min 10/04/18 05:42 BUN/Creatinine Ratio 30 % 10/04/18 05:42 Glucose 249 mg/dL (65-100) H 10/04/18 05:42 POC Glucose 312 (70-105) H 10/04/18 12:01 Lactic Acid 1.00 mmol/L (0.7-2.0) 10/01/18 13:43 Calcium 8.6 mg/dL (8.4-10.2) 10/04/18 05:42 Total Bilirubin 0.30 mg/dL (0.1-1.2) 10/04/18 05:42 AST 12 units/L (5-40) 10/04/18 05:42 ALT 30 units/L (7-56) 10/04/18 05:42 Alkaline Phosphatase 173 units/L (35-129) H 10/04/18 05:42 Total Creatine Kinase 29 units/L (30-135) L 10/02/18 11:04 CK-MB (CK-2) 3.8 ng/mL (0.0-4.0) 10/02/18 11:04 CK-MB (CK-2) Rel Index 13.1 (0-4) H 10/02/18 11:04 Troponin T < 0.010 ng/mL (0.00-0.029) 10/02/18 11:04 Total Protein 5.3 g/dL (6.3-8.2) L 10/04/18 05:42 Albumin 3.0 g/dL (3.9-5) L 10/04/18 05:42 Albumin/Globulin Ratio 1.3 % 10/04/18 05:42
[2018-10-05 04:51] LABS: Hematocrit 29.3 % (30.3-42.9); Hemoglobin 9.5 gm/dl (10.1-14.3); Mean Corpuscular HGB Conc 32 % (30-34); Mean Corpuscular Volume 92 fl (79-97); Platelet Count 201 K/mm3 (140-440); Red Blood Count 3.18 M/mm3 (3.65-5.03)
[2018-10-05 05:11] LABS: BUN/Creatinine Ratio 33; Blood Urea Nitrogen 20 mg/dL (7-17); Calcium 8.8 mg/dL (8.4-10.2); Hemolysis Index 7
[2018-10-05] MEDS: SOLU-Medrol IV SCH (05:34)
[2018-10-05 06:26] LABS: Eosinophils % (Manual) 0 % (0.0-4.3); Total Cells Counted 100
[2018-10-05 06:27] LABS: Anisocytosis 2+; Basophils % (Manual) 0 % (0.0-1.8); Macrocytosis Few; Platelet Estimate Consistent w Auto
[2018-10-05] MEDS: PULMICORT IH SCH (08:06)
[2018-10-05] MEDS: BROVANA NEBU IH SCH (08:06)
[2018-10-05] MEDS: DUONEB *Not for PRN Use IH SCH ×2 (08:07→11:37)
[2018-10-05] MEDS: HumuLIN R SUB-Q SCH ×2 (08:30→11:54)
[2018-10-05] MEDS: LEVAQUIN 750MG/150ML 750 MG/150 ML BAG IV SCH (10:02)
[2018-10-05] MEDS: CYMBALTA PO SCH (10:02)
[2018-10-05] MEDS: NORMODYNE PO SCH (10:02)
--- NOTE | 2018-10-05 11:13 | Discharge Summary ---
Providers - Providers Date of Admission: 10/01/18 16:13 Date of discharge: 10/05/18 Attending physician: MACKENZIE FAJARDO 10/03/18 10:50 Physical Therapy Evaluation and Treat [CONS] Routine Comment: Reason For Exam: deconditioning, rib fx 10/03/18 11:48 Consult to Dietitian/Nutrition [CONS] Routine Physician Instructions: Reason For Exam: Reason for Consult: Diet education Primary care physician: KINGA CRAWFORD Hospitalization Reason for admission: sepsis Condition: Critical Hospital course: 58-year-old female presents to the emergency room with chief complaint of syncope. Patient reportedly was ambulating and suddenly became dizzy and passed out. Patient was admitted with diagnosis of sepsis, left lower lobe pneumonia, rib fractures, COPD exacerbation, acute hypoxemic respiratory failure and syncope. CTA of the chest revealed a thin, ninth, 10th and 11th posterior rib fractures that appear to be acute to subacute with some consolidation in the posterior lung base reflective of pneumonia. The patient was treated with IV antibiotics with significant improvement. The patient underwent carotid ultrasound for syncope workup which revealed 50-79% stenosis of the right internal carotid and less then 50% stenosis of the left internal carotid artery. The patient will follow-up with vascular surgery as an outpatient. With regards to the respiratory failure, patient received O2 and supportive care. COPD exacerbation resolved after treatment with IV steroids, breathing treat ments and antibiotics. PT evaluated the patient and felt she could be discharged home with home health PT and rolling walker. Patient is felt to receive maximal hospital benefit and will discharge home. Dedicated discharge time 36 minutes. Disposition: - TO HOME OR SELFCARE Time spent for discharge: 36 - Discharge Diagnoses (1) Carotid stenosis, left Status: Acute (2) COPD exacerbation Status: Acute (3) Hypoxia Status: Acute (4) Respiratory failure Status: Acute Qualifiers: Chronicity: acute Respiratory failure complication: hypoxia Qualified Code(s): J96.01 - Acute respiratory failure with hypoxia (5) Syncope Status: Acute Qualifiers: Syncope type: unspecified Qualified Code(s): R55 - Syncope and collapse (6) Pneumonia Status: Acute Qualifiers: Pneumonia type: due to unspecified organism Laterality: bilateral Lung location: unspecified part of lung Qualified Code(s): J18.9 - Pneumonia, unspecified organism (7) Sepsis Status: Acute Qualifiers: Sepsis type: sepsis due to unspecified organism Qualified Code(s): A41.9 - Sepsis, unspecified organism Core Measure Documentation - Palliative Care Palliative Care/ Comfort Measures: Not Applicable - Core Measures Any of the following diagnoses?: none Exam - Constitutional Vitals: Temp Pulse Resp BP Pulse Ox 97.4 F L 81 18 136/71 95 10/05/18 08:05 10/05/18 08:29 10/05/18 08:26 10/05/18 08:06 10/05/18 08:26 General appearance: Present: no acute distress, well-nourished - EENT Eyes: Present: PERRL ENT: hearing intact, clear oral mucosa - Neck Neck: Present: supple, normal ROM - Respiratory Respiratory effort: normal Respiratory: bilateral: CTA - Cardiovascular Heart Sounds: Present: S1 & S2. Absent: rub, click - Extremities Extremities: pulses symmetrical, No edema Peripheral Pulses: within normal limits - Abdominal General gastrointestinal: Present: soft, non-tender, non-distended, normal bowel sounds Female genitourinary: Present: normal - Integumentary Integumentary: Present: clear, warm, dry - Musculoskeletal Musculoskeletal: gait normal, strength equal bilaterally - Psychiatric Psychiatric: appropriate mood/affect, intact judgment & insight - Neurologic Neurologic: CNII-XII intact, moves all extremities Plan Activity: advance as tolerated Weight Bearing Status: Weight Bear as Tolerated Diet: regular Special Instructions: home health RN Durable Medical Equipment Needed Upon Discharge: Walker-Rolling Follow up with: KINGA CRAWFORD MD [Primary Care Provider] - 3-5 Days YURY LICONA MD [Staff Physician] - 7 Days Prescriptions: Arformoterol Nebu [Brovana Nebu] 15 mcg IH Q12HRT #30 ml Budesonide [Pulmicort Respules] 0.5 mg IH Q12HRT 30 Days nebu clonazePAM [Clonazepam] 1.5 tab PO HS #10 tablet Duloxetine HCl [DULoxetine] 1 tab PO BID #60 capsule. Ipratropium/Albuterol Sulfate [DUONEB *Not for PRN Use*] 1 ampul IH Q6HRT 30 Days ampul.neb Labetalol [Normodyne TAB] 200 mg PO BID #60 tablet Quetiapine Fumarate [QUEtiapine Fumarate] 1 tab PO HS #30 tablet Tiotropium [Spiriva] 18 mcg IH QDAY 30 Days cap
[2018-10-05 12:13] VITALS: BP 117/65
== END 2018-10-05 12:45 | disposition home health service (06) | DRG 871 ==
LOC: ED 11:42 → 4A 16:13
PROVIDERS: ADMIT Internal Medicine; ATTEND Hospitalist
PROC: 4A033R1 Measurement of Arterial Saturation, Peripheral, Percutaneous Approach (ICD-10-PCS; principal; 2018-10-01)
PROC: 5A09357 Assistance with Respiratory Ventilation, Less than 24 Consecutive Hours, Continuous Positive Airway Pressure (ICD-10-PCS; 2018-10-01)
DX: A41.9 Sepsis, unspecified organism (principal); J96.01 Acute respiratory failure with hypoxia; J18.1 Lobar pneumonia, unspecified organism; S22.41XA Multiple fractures of ribs, right side, initial encounter for closed fracture; J44.1 Chronic obstructive pulmonary disease with (acute) exacerbation; I65.22 Occlusion and stenosis of left carotid artery; F31.9 Bipolar disorder, unspecified; X58.XXXA Exposure to other specified factors, initial encounter; Z88.2 Allergy status to sulfonamides; Z79.899 Other long term (current) drug therapy; Z87.891 Personal history of nicotine dependence; Z79.51 Long term (current) use of inhaled steroids; Y93.89 Activity, other specified; Y92.098 Other place in other non-institutional residence as the place of occurrence of the external cause; Y99.8 Other external cause status
CPT/HCPCS: 36415; 70450; 71045; 71275; 78452; 80048; 80053; 82140; 82550; 82553; 82803; 82962; 84484; 85007; 85014; 85018; 85025; 85379; 93005; 93010; 93017; 93880; 94640; 94760; 96361; 96365; 96375; G0378; A9502; J0692; J1956; J2785; J2930; J7030; Q9967

== ENCOUNTER 2020-01-14 09:56 | Outpatient (CLI) | payer MEDICARE ==
--- NOTE | 2020-01-14 11:02 | Ultrasound Report ---
ULTRASOUND ABDOMEN, COMPLETE INDICATION: GENERALIZED ABDOMINAL PAIN. COMPARISON: No relevant prior imaging study available. FINDINGS: Pancreas: No significant abnormality. Abdominal Aorta: No significant abnormality. IVC: No significant abnormality. Liver: The liver measures 13.1 cm in length. No significant abnormality. Normal hepatopedal blood fl ow in the main portal vein. Gallbladder: No significant abnormality. Bile ducts: No significant abnormality. Common bile duct measures 4 mm. Kidneys: Right: 9.6 cm in length. No significant abnormality. Left: 9.1 cm in length. No signific ant abnormality. Spleen: No significant abnormality. Free fluid: None. Additional Findings: None. IMPRESSION: No sonographic abnormality of the abdomen. Signer Name: Maynor Bowman Jr, MD Signed: 01/14/2020 10:58 AM Workstation Name: [id number]
--- NOTE | 2020-01-14 11:09 | XRay Report ---
RIBS BILATERAL3 VIEWS INDICATION: FRACTURE OF RIBOF LEFT SIDE. COMPARISON: AP chest dated 10/01/2018 IMPRESSION: Multiple bilateral rib deformities are identified. There are multiple chronic appearing right lateral rib fractures at levels 5-9. There are multiple subacute appearing left posterolateral rib fractures from levels 8-11. The lungs are adequately aerated. No significant pleural fluid or p neumothorax. Signer Name: Maynor Bowman Jr, MD Signed: 01/14/2020 11:04 AM Workstation Name: [id number]
== END 2020-01-14 09:57 | disposition home or self-care (01) ==
LOC: US 09:56
PROVIDERS: ATTEND Internal Medicine
DX: S22.32XA Fracture of one rib, left side, initial encounter for closed fracture (principal); R10.84 Generalized abdominal pain; X58.XXXA Exposure to other specified factors, initial encounter; Y93.89 Activity, other specified; Y92.89 Other specified places as the place of occurrence of the external cause; Y99.8 Other external cause status
CPT/HCPCS: 71110; 76700